=== PATIENT | male | born 1965 | race Caucasian/White ===

== ENCOUNTER 2020-12-18 16:39 | Outpatient (REF) | payer OTHER, SELFPAY | END 2020-12-18 16:40 | disposition home or self-care (01) | LOC: HO.SCI 16:39 | PROVIDERS: Visit Provider Psychiatry & Neurology Neurology | DX: Z13.89 Encounter for screening for other disorder (principal) ==

== ENCOUNTER 2020-12-22 14:24 | Outpatient (REF) | payer OTHER, SELFPAY ==
--- NOTE | ~2020-12-22 | MR_ITS ---
EXAMINATION: MR BRAIN WITHOUT CONTRAST CLINICAL INFORMATION: Migraines. COMPARISON: None. TECHNIQUE: Multiplanar, multisequence imaging of the brain was performed without contrast. FINDINGS: No diffusion abnormalities are identified to suggest an acute infarct. The ventricles are normal in size. No mass effect or midline shift is seen. Nonspecific very mild posterior periventricular white matter signal changes may be due to perivascular spaces. No extra-axial fluid collections are seen. The brainstem and cerebellum are normal. The gradient refocused acquisition demonstrates no pathologic magnetic susceptibility artifact to indicate underlying acute or chronic blood products. The craniovertebral junction, marrow signal, and midline structures are normal. The major intracranial flow voids at the level of the [place] are preserved. The dural venous sinus flow voids are maintained. The mastoid air cells are well aerated. The maxillary sinuses are subtotally mucosal opacified and hypoplastic in appearance. There is mild ethmoid sinus mucosal thickening as well. The remaining paranasal sinuses are clear. Incidental posterior disc bulge and mild endplate spurring partially visualized at the C3-C4 level. MR/MR head/brain wo con IMPRESSION: Nonspecific very mild posterior periventricular white matter signal changes which may represent chronic gliosis from underlying perivascular spaces. Otherwise, no acute process. 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
== END 2020-12-22 14:25 | disposition home or self-care (01) ==
LOC: HO.MRI 14:24
PROVIDERS: PCP Internal Medicine; Visit Provider Psychiatry & Neurology Neurology
DX: G43.009 Migraine without aura, not intractable, without status migrainosus (principal); G81.94 Hemiplegia, unspecified affecting left nondominant side
CPT/HCPCS: 70551